=== PATIENT | female | born 1960 | race Two or more races ===

== ENCOUNTER → 2021-03-03 | Outpatient (CLI) | payer MEDICARE ==
[~2021-03-03] MED LIST: ALBU0.63 NEB; ALBU8.5H7 IH; ALLO300T PO; AMLO-170 PO; ASPI-667 PO; ATOR20TA PO; AZIT500T4 PO; BUDE0.5A3 IH; CARV12.5 PO; CHOL200074 PO; DULO60CA7 PO; GABA300C10 PO; LEVO125T6 PO; LEVO175T5 PO; LEVO500T51 PO; METF500T17 PO; Magnesium Oxide PO; POTA10TA6 PO; PRED10TA PO; SPIR25TA PO; THEO200T9 PO; THEO400T2 PO; TRAM-47 PO; TRAZ-163 PO; VORT10TA2 PO; VORT20TA2 PO; [UNRECOGNIZED DRUG - CODE] PO
== END | disposition home or self-care (01) ==
LOC: LAB 16:14
PROVIDERS: ATTEND Nurse Practitioner Family
DX: N39.0 Urinary tract infection, site not specified (principal)
CPT/HCPCS: 87077; 87086; 87186

== ENCOUNTER → 2021-07-15 | Outpatient (CLI) | payer MEDICARE ==
[2021-07-15 14:10] LABS: MEAN CORP HGB 27.7 pg (26-34); RED CELL DISTRIBUTION WIDTH 13.9 % (11.5-14.5)
[2021-07-15 14:36] LABS: ALANINE AMINOTRANSFERASE(ML) 18 U/L (12-78); ALKALINE PHOSPHATASE 100 U/L (50-136); ASPARTATE AMINO TRANSFERASE 22 U/L (0-35); CALCIUM 9.5 mg/dL (8.4-10.5); CARBON DIOXIDE 41.9 mmol/L (20.0-32); GLUCOSE 123 mg/dL (70-110)
--- NOTE | 2021-07-15 14:43 | DIREP ---
PROCEDURE:CHEST 2 VIEWS COMPARISON:[facility], CR, XRAY CHEST SINGLE VW, 08/09/2019, 07:07 AM. [facility], CR, XRAY CHEST 2 VWS, 07/03/2019, 04:58 PM. INDICATIONS:R06.02 SHORTNESS OF BREATH FINDINGS: LUNGS/PLEURA:There are ill-defined ground-glass opacities scattered throughout both lungs. No effusions. VASCULATURE:Normal. Unremarkable pulmonary vasculature. CARDIAC:Normal. No cardiac silhouette abnormality or cardiomegaly. MEDIASTINUM:Normal. No visible mass or adenopathy. BONES:Mild degenerative disc disease and spondylosis without visible acute abnormalities. OTHER:Negative. CONCLUSION:Multifocal ground-glass opacities in the lungs typical for Covid 19. Dictated by: Harry Cook M.D. on 07/15/2021 at 02:40 PM
== END | disposition home or self-care (01) ==
LOC: LAB 13:44
PROVIDERS: ATTEND Nurse Practitioner Family
DX: R91.8 Other nonspecific abnormal finding of lung field (principal); R42 Dizziness and giddiness; M51.34 Other intervertebral disc degeneration, thoracic region; M47.814 Spondylosis without myelopathy or radiculopathy, thoracic region; N39.0 Urinary tract infection, site not specified
CPT/HCPCS: 36415; 71046; 80053; 83735; 83880; 84484; 85027; 87086

== ENCOUNTER → 2021-09-23 | Outpatient (CLI) | payer MEDICARE ==
[~2021-09-23] MED LIST changes: -DULO60CA7 PO; +DULO60CA8 PO; +FURO20TA3 PO; +LIRA0.6P2 SQ; +LISI40TA10 PO; +MAGN400T51 PO; +NAPR220C2 PO; +POTA-129 PO; -POTA10TA6 PO; +SPIR50TA PO
[2021-09-23] MEDS: LEXISCAN IV ONE (12:28)
--- NOTE | 2021-09-23 20:18 | PCM.ECHO ---
APPROVED REPORT EXAM: Comprehensive 2D, Doppler, and color-flow Echocardiogram. Patient Location: OUT-PATIENT Indications Congestive Heart Failure Heart Failure 2D Dimensions LVOT Diameter 2.29 (1.8-2.4cm) LVEF(%) 60.73 (>50%) M-Mode Dimensions RVDd 3.10 (2.1-3.2cm) Left Atrium(MM) 4.60 (2.5-4.0cm) IVSd 1.55 (0.7-1.1cm) Aortic Root 2.55 (2.2-3.7cm) LVDd 4.80 (4.0-5.6cm) Aortic Cusp Exc 1.75 (1.5-2.0cm) PWd 0.80 (0.7-1.1cm) MV EPSS 1.33 (<0.5cm) IVSs 1.60 cm FS (%) 28.55 % LVDs 3.40 (2.0-3.8cm) ESV(Teich) 48.54 ml PWs 1.50 cm LVEF(%) 54.98 (>50%) Volumes Biplane 2D LV Volumes Biplane 2D LA Volumes LVEDv A4C 105.85 mL LA ESV Index LVESv A4C 41.56 mL Aortic Valve AoV Peak Venkata. 1.50 m/s AoV VTI 35.40 cm AO Peak GR. 9.50 mmHg AO Mean GR. 5.45 mmHg LVOT VTI 25.09 cm LVOT Peak Venkata. 0.89 m/s ROD(VTI)/BSA 2.92 cm2/m2 ROD (VTI) 2.92 cm2 Mitral Valve MV E Velocity 1.50m/s MR Peak Gr. 16.40mmHg MV A Velocity 1.25m/s TDI Lateral E' P. V 0.10m/s Medial E' P. V 0.12m/s Pulmonary Valve PV Peak Velocity 0.70m/s PV Peak Grad. 2.10mmHg RVOT VTI 15.57cm Tricuspid Valve TR P. Velocity 2.25m/s RAP ESTIMATE 10.00mmHg TR Peak Gr. 20.30mmHg RVSP 30.30mmHg LEFT VENTRICLE The left ventricle is normal size. The left ventricular systolic function is normal. The left ventricular ejection fraction is within the normal range. There is normal left ventricular wall thickness. There is normal LV segmental wall motion. There is no ventricular septal defect visualized. No left ventricle thrombus noted on this study. LVEF is 55-60%. RIGHT VENTRICLE The right ventricle is normal size. The right ventricular systolic function is normal. There is normal right ventricular wall thickness. ATRIA The left atrium size is normal. The right atrium size is normal. The interatrial septum is intact with no evidence for an atrial septal defect. AORTIC VALVE The aortic valve is normal in structure. There is no aortic valvular stenosis. No aortic regurgitation is present. There is no aortic valvular vegetation. MITRAL VALVE The mitral valve is normal in structure. There is no mitral valve stenosis. Mild mitral regurgitation. There is no evidence of mitral valve vegetations. TRICUSPID VALVE The tricuspid valve is normal in structure. There is no tricuspid valve stenosis. Mild tricuspid regurgitation. There is no tricuspid valve vegetations. PULMONIC VALVE Pulmonic valve is not well visualized. There is no pulmonic valvular stenosis. There is no pulmonic valvular regurgitation. GREAT VESSELS The aortic root is normal in size. Pulmonary artery is not well visualized. Aortic arch is not well visualized. IVC is not well visualized. PERICARDIUM There is no pericardial effusion. There is no pleural effusion. Other Information Study Quality: Fair <Conclusion> The left ventricular systolic function is normal. LVEF is 55-60%. Mild mitral regurgitation. Mild tricuspid regurgitation. Electronically signed by : SARAH SHERIFF. 09/23/2021 20:17:45
--- NOTE | 2021-09-24 00:46 | STRESS ---
DATE OF SERVICE: 09/23/2021 DICTATOR NAME: SARAH SHERIFF CARDIAC STRESS TEST INDICATION: Chest pain. FINDINGS: Baseline EKG shows sinus bradycardia with nonspecific ST-T wave changes. Stress EKG shows normal sinus rhythm, unchanged from baseline. At the end of recovery, EKG shows normal sinus rhythm, unchanged from baseline. Baseline heart rate is 59 beats per minute and jimi to 78 beats per minute during stress. At the end of recovery, the heart rate was 78 beats per minute. Baseline blood pressure is 121/59 and remained the same during stress. At the end of recovery, the blood pressure was 134/74. Blood pressure and heart rate were appropriate for stress. There were no significant symptoms noted during stress. There were no arrhythmias noted during stress. EKG portion of stress test is negative for myocardial ischemia. Nuclear images were obtained with a rest dose of 11.5 mCi technetium-99 sestamibi, and a stress dose of 32.5 mCi technetium 99 sestamibi. Nuclear images reveal a moderate sized reversible perfusion defect involving the mid to basal lateral wall suggestive of myocardial ischemia. There is also a small sized reversible perfusion defect involving the inferior wall also suggestive of myocardial ischemia. There is no evidence of myocardial infarction. TID is 1.05. There is no evidence of diaphragmatic attenuation artifact. Left ventricular ejection fraction is 78%. EDV is 73 mL, ESV is 16 mL. The left ventricle is normal in size. Gated motion images showed normal wall motion across all segments of the left ventricle. IMPRESSION: 1. There is a moderate sized reversible perfusion defect involving the mid to basal lateral wall suggestive of myocardial ischemia. 2. There is a small sized reversible perfusion defect involving the basal inferior wall also suggestive of myocardial ischemia. 3. There is no evidence of myocardial infarction. 4. This is an abnormal study. RECOMMENDATION: Recommend left heart catheterization. Emilia COLLINS D.O. DR: HUMPHREY TID: [id number] RECEIPT: [id number]
== END | disposition home or self-care (01) ==
LOC: RAD 10:46
PROVIDERS: ATTEND Internal Medicine Interventional Cardiology
DX: I08.1 Rheumatic disorders of both mitral and tricuspid valves (principal)
CPT/HCPCS: 78452; 93017; 93306; A9500; J2785

== ENCOUNTER → 2021-10-18 | Day surgery (SDC) | payer MEDICARE ==
[~2021-10-18] VITALS: Ht 154.9 cm; Wt 149.7 kg
[2021-10-18] VITALS (12 sets, daily range): BP systolic 109–141; BP diastolic 51–88
[~2021-10-18] MED LIST changes: +HEPARIN ONE; +NS 1000ML 1,000 ML IV SCH; +SUBLIMAZE ONE; +VERSED ONE; +XYLOCAINE ONE
[2021-10-18 09:29] LABS: BASOPHIL % 0.4 % (0.0-0.2); EOSINOPHIL # 0.4 10^3/uL (0.0-0.2); EOSINOPHIL % 4.6 % (0.0-5.0); LYMPHOCYTES # 1.25 10^3/uL1 (1.0-4.8); LYMPHOCYTES % 16.5 % (24.0-44.0); MEAN CORP HGB 27.7 pg (26-34); MONOCYTES # 0.5 10^3/uL (0.3-0.8); MONOCYTES % 7.1 % (5.0-12.0); NEUTROPHIL # 5.4 10^3/uL (1.8-7.7); RED CELL DISTRIBUTION WIDTH 14.6 % (11.5-14.5)
[2021-10-18 09:42] LABS: CARBON DIOXIDE 34.5 mmol/L (20.0-32)
--- NOTE | 2021-10-18 11:45 | PCM.EKG ---
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 Reading MD: Measurements Intervals [place] Rate: 68 P: 36 LA: 152 QRS: 99 QRSD: 98 T: 58 QT: 432 QTc: 459 Interpretive Statements Normal sinus rhythm Low voltage QRS No previous ECG available for comparison Please click the below link to view image of tracing.
--- NOTE | 2021-10-18 21:50 | [facility] ---
DATE OF SERVICE: 10/18/2021 DICTATOR NAME: SARAH SHERIFF CARDIAC CATHETERIZATION REPORT INDICATION: Abnormal cardiac ischemic workup. This is a 61-year-old female who presented to the outpatient setting where she underwent noninvasive cardiac workup that was noted to be abnormal. She was then set up for left heart catheterization after informed consent were obtained. PROCEDURES PERFORMED: 1. Selective coronary angiography. 2. Left ventriculography. 3. Hemostasis established using a 6-[place] Mynx control. DESCRIPTION OF PROCEDURE: Access was obtained using a 4-[place] micropuncture kit to cannulate the right common femoral artery. The 4-[place] sheath was then upsized to a 6-[place] regular short sheath. Diagnostic angiography was then carried out using a Pamela left catheter to engage the left coronary artery system. It became evident that there was no left main. A "double barrel" takeoff between the LAD and the left circumflex artery is noted in what is described as a "cloaca". Selective engagement of the left circumflex artery revealed a dominant left circumflex artery with mild luminal irregularities. The left circumflex artery gives rise to 3 obtuse marginal branches that are all noted to have mild luminal irregularities. I then torqued the Pamela left catheter to engage the left anterior descending artery. Angiography revealed mild luminal irregularities involving the left anterior descending artery. The LAD runs in the interventricular groove to the apex to form a type 2 LAD. It gives rise to 2 diagonal branches that are noted to have mild luminal irregularities. The left circumflex artery is also noted to have mild luminal irregularities. The Pamela left catheter was then exchanged for a Pamela right catheter, which was used to cross the aortic valve into the left ventricle. Left ventriculography was performed. LVEF was noted to be 65%. LVEDP was noted to be 12. Upon pullback of the Pamela right catheter, there was no gradient across the aortic valve. The Pamela right catheter was then used to engage the RCA. RCA angiography showed a dominant RCA with mild luminal irregularities. The RCA bifurcates distally to a right posterior descending artery and the right posterolateral artery. Both vessels are noted to have mild luminal irregularities. The Pamela right catheter was then taken out and hemostasis was established using a 6-[place] Mynx control. 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 There were no complications. IMPRESSION: 1. Nonobstructive coronary artery disease. 2. Selective coronary angiography. 3. 'Double barrel" takeoff of the left anterior descending artery and the left circumflex artery with no left main. 4. Left ventriculography. 5. Left ventricular ejection fraction of 65%. 6. Left ventricular end-diastolic pressure of 12. 7. Hemostasis established using a 6-[place] Mynx control. RECOMMENDATIONS: No coronary intervention is necessary at this time. Lifestyle modification factors including diet control, exercise and weight loss have been strongly advised. The patient will be discharged home today to follow up with me in the office in 2-3 weeks. Emilia COLLINS D.O. DR: ROSS TID: [id number] RECEIPT: [id number] MTDReji
== END | disposition home or self-care (01) ==
LOC: CCL 08:56
PROVIDERS: ATTEND Internal Medicine Interventional Cardiology
DX: I25.10 Atherosclerotic heart disease of native coronary artery without angina pectoris (principal)
CPT/HCPCS: 36415; 80053; 85025; 85610; 85730; 93005; 93458; 99152; 99153; C1760; C1769; C1887 ×2; C1894 ×3; J1644 ×2; J2250; J3010; Q9967

== ENCOUNTER 2022-02-10 15:34 | Emergency (ER) | payer MEDICARE ==
[~2022-02-10] VITALS: Ht 149.9 cm; Wt 158.8 kg
[~2022-02-10 15:34] MED LIST changes: -HEPARIN ONE; -NS 1000ML 1,000 ML IV SCH; -SUBLIMAZE ONE; -VERSED ONE; -XYLOCAINE ONE
--- NOTE | 2022-02-10 16:39 | NUR ---
ARRIVAL PT BROUGHT VIA W/C TO ED3 WITH C/O HIGH POTASSIUM LEVELS. PT STATES PCP NEELIMA MURILLO CALLED HER TODAY REGARDING LABS THAT WERE DRAWN IN THEIR OFFICE LAST MONDAY WITH POTASSIUM LEVEL ABOVE 6. PT STATES THAT THE APPOINTMENT WITH THE PCP WAS A CHECK UP APPOINTMENT. THE PT STATES THAT SHE HAS HAD GENERALIZED FATIGUE OVER THE LAST FEW DAYS. PT STATES URINE HAS BEEN CLEAR AND NORMAL. VITALS OBTAINED. NOTIFIED OF PTS ARRIVAL.
--- NOTE | 2022-02-10 17:08 | PCM.EKG ---
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
--- NOTE | 2022-02-10 17:09 | ER.PDOC ---
General Chief Complaint: Requesting Medical Care Stated Complaint: POSSIBLE HIGH POTASSIUM LEVELS TRAVEL OUT OF US: No Time seen by MD: 17:07 Source: patient Exam Limitations: no limitations History of Present Illness Initial Comments Patient sent here by her PCP because of high potassium on labs done 3 days ago. She takes spironolactone. She does not have any complaints. Severity: moderate Associated Symptoms: denies symptoms Allergies: Coded Allergies: Penicillins (Verified Allergy, Severe, FEVER, SWELLING, BLISTERS, DIFFICULTY BREATHING, 10/06/21) Sulfa (Sulfonamide Antibiotics) (Verified Allergy, Severe, FEVER, SWELLING, BLISTERS, DIFFICULTY BREATHING, 10/06/21) Home Meds Reported Medications Lisinopril (LISINOPRIL) 40 Mg Tablet, 1 TAB PO DAILY, #30 TAB 5 Refills 10/06/21 Furosemide (FUROSEMIDE) 20 Mg Tablet, 1 TAB PO DAILY, #90 TAB 1 Refill 10/06/21 Spironolactone 50MG (ALDACTONE 50MG) 50 Mg Tablet, 1 TAB PO DAILY, #30 TAB 3 Refills 10/06/21 Magnesium Oxide (MAGNESIUM OXIDE) 400 Mg Tablet, 1 TAB PO DAILY, #30 TAB 5 Refills 10/06/21 Naproxen Sodium (ALEVE) 220 Mg Capsule, 440 MG PO BID PRN for PAIN 4 - 6, CAPSULE 10/06/21 Liraglutide (VICTOZA 3-PORFIRIO) 0.6 Mg/0.1 Ml Pen.injctr, 1.2 MG SQ Q48H, #27 MILLILITER 3 Refills 10/06/21 Vortioxetine Hydrobromide (Trintellix) 20 Mg Tablet, 20 MG PO DAILY24, TAB 08/08/19 Cholecalciferol (Vitamin D3) (VITAMIN D-3) 2,000 Unit Capsule, 2000 UNIT PO DAILY24, CAPSULE 03/30/15 Albuterol Sulfate (ALBUTEROL SULFATE) 0.63 Mg/3 Ml Vial.neb, 1 VIAL NEB Q6 PRN for SHORTNESS OF BREATH, #150 MILLILITER 1 Refill 10/10/14 Allopurinol (ALLOPURINOL) 300 Mg Tablet, 1 TAB PO DAILY, #30 TAB 5 Refills 10/10/14 Gabapentin (GABAPENTIN) 300 Mg Capsule, 300 MG PO TID PRN for PAIN 1 - 3, CAPSULE 10/10/14 Amlodipine Besylate (AMLODIPINE BESYLATE) 10 Mg Tablet, 1 TAB PO DAILY, #30 TAB 5 Refills 10/10/14 Past Medical History Medical History: congestive heart failure, hypertension Surgical History: cholecystectomy, hysterectomy, other Family History Significant Family History: no pertinent family hx Social History Smoking: non-smoker Alcohol Use: none Drug Use: none Review of Systems Constitutional: no symptoms reported EENTM: no symptoms reported Respiratory: no symptoms reported Cardiovascular: no symptoms reported Gastrointestinal: no symptoms reported All Other Systems: Reviewed and Negative Physical Exam General Appearance: No Apparent Distress EENT: eyes nml inspection Neck: Non-Tender, Full Range of Motion, Supple, Normal Inspection Respiratory: chest non-tender, lungs clear, normal breath sounds, no respiratory distress, no accessory muscle use CVS: reg rate & rhythm, no murmur, no gallop, pulses nml, nml capillary refill Gastrointestinal: Normal Bowel Sounds, No Organomegaly, No Pulsatile Mass, Non Tender Back: Normal Inspection, No CVA Tenderness, No Vertebral Tenderness Extremities: Normal Range of Motion, Non-Tender, Normal Inspection, No Pedal Edema 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 as Tested, No Motor/Sensory Deficits, Alert, Normal Mood/Affect, Oriented x 3 Skin: Normal Color Results/Orders Results/Orders Orders - SOFI SINCLAIR MD Cbc W/O Diff (02/10/22 17:06) Basic Metabolic Panel (02/10/22 17:06) Ekg-Routine (02/10/22 17:06) Vital Signs Date Time Temp Pulse Resp B/P (MAP) Pulse Ox O2 Delivery O2 Flow Rate FiO2 02/10/22 17:13 98.3 65 18 130/57 (81) 95 Nasal Canula 3.00 02/10/22 17:13 98.3 65 18 02/10/22 17:13 98.3 65 18 95 Laboratory Tests Test 02/10/22 17:11 White Blood Count 6.1 10^3/uL (4.5-11.0) Red Blood Count 4.45 10^6/uL (4.00-5.20) Hemoglobin 12.5 g/dL (12.0-15.0) Hematocrit 41.6 % (36.0-46.0) Mean Corpuscular Volume 93.5 fL (78-100) Mean Corpuscular Hemoglobin 28.1 pg (26-34) Mean Corpuscular Hemoglobin Concent 30.0 g/dL (33-36.5) L Red Cell Distribution Width 14.0 % (11.5-14.5) Platelet Count 246 10^3/uL (150-400) Mean Platelet Volume 11.0 fL (7.8-11.0) Sodium Level 138 mmol/L (132-145) Potassium Level 5.6 mmol/L (3.6-5.2) H Chloride Level 103.0 mmol/L (96-109) Carbon Dioxide Level 30.0 mmol/L (20.0-32) Glucose Level 221 mg/dL (70-110) H Blood Urea Nitrogen 32 mg/dL (7-18) H Creatinine 1.58 mg/dL (0.59-1.40) H Calcium Level 9.3 mg/dL (8.4-10.5) Anion Gap 10.6 Estimated GFR () 40.4 (>/=60) Est GFR (CKD-EPI)(Non-Afr [place]an) 33.4 (>/=60) BUN/Creatinine Ratio 20.0 Progress Progress Potassium today is 5.6. Patient given a dose of Kayexalate. She continues to voice no complaints. EKG/XRAY/CT/US EKG: NSR EKG Comments: HR 59, normal P axis ER DEPART Departure Time of Disposition: 17:41 Disposition: 01 HOME / SELF CARE / HOMELESS Impression: Primary Impression: Acute hyperkalemia Condition: Improved Referrals: NEELIMA MONTEJO DIRECTOR OF RECRUITMENT AND ADMISSIONS (PCP) PRIMARY CARE PROVIDER Additional Instructions: Follow-up with your PCP tomorrow for repeat potassium Return to ED if any concerns Duration or Time Spent with Pa: 10 min SOFI SINCLAIR MD Feb 10, 2022 17:09
[2022-02-10 17:13] VITALS: BP 130/57
[2022-02-10 17:15] LABS: MEAN CORP HGB 28.1 pg (26-34)
[2022-02-10] MEDS ORDERED: SPS PO STA (17:37)
[2022-02-10] MEDS ORDERED: SPS ONE (17:47)
[2022-02-10 17:54] VITALS: BP 122/62
== END 2022-02-10 18:00 | disposition home or self-care (01) ==
LOC: ER 15:34
DX: E87.5 Hyperkalemia (principal); I11.0 Hypertensive heart disease with heart failure; I50.9 Heart failure, unspecified; Z90.710 Acquired absence of both cervix and uterus; Z88.2 Allergy status to sulfonamides; Z88.0 Allergy status to penicillin; Z79.899 Other long term (current) drug therapy; Z90.49 Acquired absence of other specified parts of digestive tract
CPT/HCPCS: 36415; 80048; 85027; 93005; 99284

== ENCOUNTER → 2022-09-08 | Outpatient (CLI) | payer MEDICARE ==
[2022-09-08 15:51] LABS: BASOPHIL # 0.1 10^3/uL (0.0-0.1); BASOPHIL % 0.4 % (0.0-0.2); EOSINOPHIL # 5.7 10^3/uL (0.0-0.2); EOSINOPHIL % 33.7 % (0.0-5.0); LYMPHOCYTES # 2.62 10^3/uL1 (1.0-4.8); LYMPHOCYTES % 15.5 % (24.0-44.0); MONOCYTES # 0.9 10^3/uL (0.3-0.8); MONOCYTES % 5.1 % (5.0-12.0); NEUTROPHIL # 7.5 10^3/uL (1.8-7.7); NEUTROPHILS % 44.2 % (41.0-85.0); PLATELET COUNT 289 10^3/uL (150-400); RED CELL DISTRIBUTION WIDTH 13.2 % (11.5-14.5)
[2022-09-08 15:59] LABS: CARBON DIOXIDE 20.1 mmol/L (20.0-32)
[2022-09-08 16:10] LABS: BASOPHIL 1 % (0-2); EOSINOPHIL 47 % (1-4); LYMPHOCYTE 9 % (25-36); MONOCYTE 6 % (3-9); SEGMENTED NEUTROPHILS 37 % (31-76)
--- NOTE | 2022-09-08 21:29 | DIREP ---
PROCEDURE:XR ABDOMEN 2 VIEWS COMPARISON:None. INDICATIONS:R19.7 DIARRHEA TECHNIQUE:Flat and upright views of the abdomen are provided. FINDINGS: BOWEL GAS PATTERN:No dilated gaseous small bowel to suggest small bowel obstruction radiographically. Question homogeneously dense fecal material in the proximal colon. CALCIFICATIONS:None significant. LUNG BASES:Clear. BONES:Normal. OTHER:No additional findings. CONCLUSION: Nonspecific bowel gas pattern. Question mild proximal colon stool burden. Dictated by: Sheila Davlia MD on 09/08/2022 at 09:27 PM
== END | disposition home or self-care (01) ==
LOC: RAD 15:12
PROVIDERS: ATTEND Nurse Practitioner Family
DX: R19.7 Diarrhea, unspecified (principal)
CPT/HCPCS: 36415; 74019; 80053; 83690; 85025; 86677

== ENCOUNTER → 2024-01-31 | Outpatient (CLI) | payer OTHER | END | disposition home or self-care (01) | LOC: RAD 12:52 | PROVIDERS: ATTEND Nurse Practitioner Family | DX: Z12.31 Encounter for screening mammogram for malignant neoplasm of breast (principal); Z78.0 Asymptomatic menopausal state | CPT/HCPCS: 77063; 77067; 77080 ==

== ENCOUNTER → 2024-02-06 | Outpatient (CLI) | payer OTHER | END | disposition home or self-care (01) | LOC: RAD 12:47 | PROVIDERS: ATTEND Nurse Practitioner Women's Health | DX: N85.2 Hypertrophy of uterus (principal); R93.89 Abnormal findings on diagnostic imaging of other specified body structures | CPT/HCPCS: 76830; 76856 ==

== ENCOUNTER → 2024-03-11 | Outpatient (CLI) | payer OTHER ==
[2024-03-11 15:52] LABS: ANION GAP 10.8; BUN/CREATININE RATIO 18.75 (10.0-20.0); CARBON DIOXIDE 30.3 mmol/L (20.0-32); CREATININE SERUM 1.12 mg/dL (0.59-1.40); EST GFR, NON-AA 49.3 (>/=60); POTASSIUM 4.1 mmol/L (3.6-5.2)
== END | disposition home or self-care (01) ==
LOC: LAB 15:06
PROVIDERS: ATTEND Nurse Practitioner Family
DX: E11.65 Type 2 diabetes mellitus with hyperglycemia (principal)
CPT/HCPCS: 36415; 80048; 83036